=== PATIENT | male | born 1965 | race Caucasian/White ===

== ENCOUNTER 2017-11-24 20:27 | Emergency (ER) | payer SELFPAY ==
[~2017-11-24] VITALS: Ht 180.3 cm; Wt 145.2 kg
[~2017-11-24 20:27] MED LIST: CIPRO500 MG PO; PERCOCET 5-3251 EACH PO; POTASSIUM CHLO10 MEQ PO
== END 2017-11-24 22:30 | disposition home or self-care (01) ==
LOC: ED 20:27
DX: R19.7 Diarrhea, unspecified (principal); R11.0 Nausea; R26.9 Unspecified abnormalities of gait and mobility; F17.200 Nicotine dependence, unspecified, uncomplicated
CPT/HCPCS: 70450; 80053; 81001; 85025; 99284

== ENCOUNTER → 2018-02-08 | Emergency (ER) | payer SELFPAY ==
[~2018-02-08] VITALS: Ht 180.3 cm; Wt 145.2 kg
--- NOTE | 2018-02-09 08:25 | EKG ---
[facility] [address] [facility] [place], [place] [address] Signed Normal sinus rhythm Normal ECG No previous ECGs available Confirmed by LENIN PARSONS MD ([id number]) on 02/09/2018 8:25:11 AM Electronically Signed By: LENIN PARSONS MD 02/09/18 0825 PATIENT NAME: BIN SOLIMAN JR Electrocardiogram DATE OF : 69 PHYSICIAN: LENIN PARSONS MD REPORT #: [id number] REPORT IS CONFIDENTIAL AND NOT TO BE RELEASED WITHOUT AUTHORIZATION
== END ==
LOC: ED 20:22
DX: R20.2 Paresthesia of skin (principal); E66.9 Obesity, unspecified; F17.200 Nicotine dependence, unspecified, uncomplicated
CPT/HCPCS: 36415; 70450; 80053; 85025; 85610; 85730; 93005; 93010; 99284

== ENCOUNTER 2018-09-27 08:21 | Day surgery (SDC) | payer OTHER ==
[~2018-09-27] VITALS: Ht 180.3 cm; Wt 100.4 kg
[~2018-09-27 08:21] MED LIST changes: +ASPIRIN EC81 MG PO; +ATORVASTATIN CA80 MG PO; +MIRALAX17 GM PO; +OMEPRAZOLE20 MG PO; +ZESTRIL5 MG PO
--- NOTE | 2018-09-27 10:36 | NUR ---
09/27/18 1036 Kary,Karrie 1032 PT ARRIVED TO PACU ON 3L VIA MASK, PT WAKES TO TACTILES STIMULI AND IS REORIENTED TO PACU. PT BACK TO SLEEP, RESP EVEN AND UNLABORED.
--- NOTE | 2018-09-27 17:32 | OR ---
[facility] [address] [place], [place] [address] Signed DATE OF OPERATION: 09/27/2018 SURGEON: Sonali Rosario MD PREOPERATIVE DIAGNOSIS: Change in bowel habits with constipation following a stroke. POSTOPERATIVE DIAGNOSES: 1. Moderate internal and external hemorrhoids. 2. A 5 mm polyp at 95 cm. 3. A 4 mm polyp at proximal right colon. PROCEDURE PERFORMED: Colonoscopy with hot biopsy. ESTIMATED BLOOD LOSS: None. INDICATIONS: Bin is a 53-year-old gentleman, who unfortunately suffered a rather significant stroke. He had been smoking up to two packs of cigarettes a day for 25 years. It has affected the right side of his body. 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 He has been waiting for his disability. In the meantime, he has had a change in bowel habits with significant constipation. His MiraLAX has not been helping much. He was therefore asked to see me for colonoscopy. His mother happened to come with him as he can no longer drive. There is no family history of colon cancer or polyps. I gave Bin and his mom a booklet on colonoscopy. We looked at that together along with the risks including, but not limited to gas, bloating, crampy abdominal pain, bleeding, perforation, requiring surgery, and missed diagnosis. He also understands the need for IV conscious sedation. He had expressed understanding and wished to proceed. DESCRIPTION OF PROCEDURE: Bin was taken into our endoscopy suite and placed in the left lateral decubitus position. He was given a total of 8 mg of Versed and 150 mcg of fentanyl to cover the case. A digital rectal exam was performed. He does have moderate circumferential external hemorrhoids. A good sphincter tone. Prostate was unremarkable. The adult colonoscope was introduced and advanced under direct visualization of camera. It took extra sedation and abdominal compression in order to advance the scope. He also had a below average bowel prep. He had areas of liquid particulate stool matter that I could not quite irrigate and suction out completely. In the future, he should probably double Electronically Signed By: SONALI ROSARIO MD 09/27/18 1732 PATIENT NAME: BIN SOLIMAN JR OPERATIVE REPORT DATE OF : 69 REPORT #: [id number] PHYSICIAN: SONALI ROSARIO MD PCP: DANAE MAURICE PA-C REPORT IS CONFIDENTIAL AND NOT TO BE RELEASED WITHOUT AUTHORIZATION [facility] [address] [place], [place] [address] Signed his bowel prep. We have eventually made it into the cecum itself. We could see the appendiceal orifice and the ileocecal valve. On the fold just above the ileocecal valve, there was a small polyp easily removed with the help of hot biopsy forceps. The scope was slowly withdrawn and we found one other polyp at 95 cm. It was easily removed with hot biopsy forceps. No diverticulosis. Rectum was unremarkable. Upon retroflexion of scope, he does have moderate internal hemorrhoid tissue as well. The gas was then suctioned out and the colonoscope removed. Bin tolerated the procedure well. RECOMMENDATIONS: I will see Bin back in my office in 7 to 14 days to review his results. He should double bowel prep in the future. Sonali Rosario MD ALB/MODL /[id number] cc: MD Danae Espitia PA-C Bruce Carlson Copies: SONALI ROSARIO MD, CHLOE K PA-C CARLSON, BRUCE ~ Electronically Signed By: SONALI ROSARIO MD 09/27/18 1732 PATIENT NAME: BIN SOLIMAN OPERATIVE REPORT DATE OF : 69 REPORT #: [id number] PHYSICIAN: SONALI ROSARIO MD PCP: DANAE MAURICE PA-C REPORT IS CONFIDENTIAL AND NOT TO BE RELEASED WITHOUT AUTHORIZATION
== END 2018-09-27 11:15 | disposition home or self-care (01) ==
LOC: OPS 08:21 → DS 08:22 → OPS 09:00 → DS 09:00 → OPS 09:45
PROVIDERS: Colon & Rectal Surgery
PROC: 0DBE8ZZ Excision of Large Intestine, Via Natural or Artificial Opening Endoscopic (ICD-10-PCS; 2018-09-27)
PROC: 0DBF8ZZ Excision of Right Large Intestine, Via Natural or Artificial Opening Endoscopic (ICD-10-PCS; principal; 2018-09-27 09:45)
DX: D12.2 Benign neoplasm of ascending colon (principal); K63.5 Polyp of colon; K64.8 Other hemorrhoids; K64.4 Residual hemorrhoidal skin tags; I69.398 Other sequelae of cerebral infarction; K59.00 Constipation, unspecified; I10 Essential (primary) hypertension; E66.9 Obesity, unspecified; F17.210 Nicotine dependence, cigarettes, uncomplicated; Z79.82 Long term (current) use of aspirin; Z79.899 Other long term (current) drug therapy
CPT/HCPCS: 99153; G0500; J2250; J3010; J7120